=== PATIENT | male | born 1975 | race Caucasian/White ===

== ENCOUNTER 2024-10-24 12:04 | Day surgery (SDC) | payer BC ==
[2024-10-22 09:16] VITALS: BMI 35.2
[2024-10-24] MEDS: IV FLUID CONTINUATION 1,000 ML IV ONE ×2 (13:38→14:37)
[2024-10-24] MEDS: LACTATED RINGERS 1,000 ML BAG IV STA (13:52)
[2024-10-24] MEDS ORDERED: PROPOFOL 10 MG/ML 20 ML VIAL IV ONE (14:38)
--- NOTE | 2024-10-24 14:55 | P.PCN ---
Date of Procedure: 10/24/24 Procedure(s) Performed: BRIEF HISTORY: Patient is a 49-year-old pleasant white male scheduled for an elective colonoscopy as a part of screening for colon cancer. His dad was diagnosed with appendiceal cancer in his paternal uncle with colon cancer. PROCEDURE PERFORMED: Colonoscopy. PREOPERATIVE DIAGNOSIS: Screening for colon cancer and family Struve colon cancer]. IV sedation per Anesthesia. PROCEDURE: After informed consent was obtained, the patient, was brought into the endoscopy unit. IV sedation was administered by Anesthesia under continuous monitoring. Digital rectal examination was normal. Initially the Olympus CF-160 flexible video colonoscope was then inserted in the rectum, gradually advanced into the cecum without any difficulty. Careful examination was performed as the scope was gradually being withdrawn. Ileocecal valve and the appendiceal orifice were visualized and appeared normal. Prep was excellent. Mucosa of the cecum, ascending colon, transverse colon, descending colon, sigmoid colon, and rectum appeared normal. Retroflexion was performed in the rectum and no lesions were seen. The patient tolerated the procedure well. IMPRESSION: Normal-appearing colon from rectum to cecum with no evidence of colorectal neoplasia. RECOMMENDATIONS: Findings of this examination were discussed with the patient as well as his family.. He was advised to have repeat screening colonoscopy in 5 years because of the family history of colon cancer
[2024-10-24 15:14] VITALS: RESP 14; TEMP 98
[2024-10-24 15:32] VITALS: BP 135/79; PULSE 74
== END 2024-10-24 15:33 | disposition home or self-care (01) ==
LOC: ORWHC2ENDO 12:04
PROVIDERS: ATTEND Internal Medicine Gastroenterology
DX: Z12.11 Encounter for screening for malignant neoplasm of colon (principal); I10 Essential (primary) hypertension; E78.5 Hyperlipidemia, unspecified; K21.9 Gastro-esophageal reflux disease without esophagitis; Z79.899 Other long term (current) drug therapy; Z80.0 Family history of malignant neoplasm of digestive organs
CPT/HCPCS: 45378; J2704

== ENCOUNTER → 2025-01-01 | Outpatient (CLI) | payer BC ==
--- NOTE | 2025-01-01 12:13 | CA ---
Transthoracic Echo Report Name: Gaurav Izquierdo Age: 49 Gender: M : 1975 Exam Date: 01/01/2025 08:29 Exam Location: [place] Echo Ht (in): 69 Wt (lb): 240 Ordering Physician: Yusef Glez DO Attending/Referring Phys: Christianne Ramon [facility] Electric Meter Technician Brooke Carlson RDCS Procedure CPT: Indications: R00.1 bradycardia Cardiac Hx: Technical Quality: Good Contrast 1: Total Dose (mL): Contrast 2: Total Dose (mL): MEASUREMENTS (Male / Female) Normal Values 2D ECHO LV Diastolic Diameter PLAX 5.0 cm 4.2 - 5.9 / 3.9 - 5.3 cm LV Systolic Diameter PLAX 3.6 cm IVS Diastolic Thickness 1.3 cm 0.6 - 1.0 / 0.6 - 0.9 cm LVPW Diastolic Thickness 1.3 cm 0.6 - 1.0 / 0.6 - 0.9 cm LV Relative Wall Thickness 0.5 RV Internal Dim ED PLAX 3.5 cm LA Systolic Diameter LX 3.9 cm 3.0 - 4.0 / 2.7 - 3.8 cm LV Diastolic Volume MOD BP 138.7 cm??? 67 - 155 / 56 - 104 cm??? LV Systolic Volume MOD BP 55.9 cm??? 22 - 58 / 19 - 49 cm??? LV Ejection Fraction MOD BP 59.7 % >= 55 % LV Cardiac Index MOD BP 1906.5 cm???/min???m??? LV Diastolic Volume MOD 4C 132.1 cm??? LV Systolic Volume MOD 4C 64.2 cm??? LV Ejection Fraction MOD 4C 51.4 % LV Cardiac Index MOD 4C 1565.8 cm???/min???m??? LV Diastolic Length 4C 8.9 cm LV Systolic Length 4C 7.3 cm LV Diastolic Volume MOD 2C 141.1 cm??? LV Systolic Volume MOD 2C 57.0 cm??? LV Ejection Fraction MOD 2C 59.6 % LV Cardiac Index MOD 2C 1937.5 cm???/min???m??? LV Diastolic Length 2C 8.8 cm LV Systolic Length 2C 7.1 cm M-MODE Aortic Root Diameter MM 3.7 cm AV Cusp Separation MM 2.5 cm DOPPLER AV Peak Velocity 137.8 cm/s AV Peak Gradient 7.6 mmHg Mitral E Point Velocity 87.2 cm/s Mitral A Point Velocity 49.2 cm/s Mitral E to A Ratio 1.8 MV Deceleration Time 213.7 ms MV E' Velocity 11.5 cm/s Mitral E to MV E' Ratio 7.6 TR Peak Velocity 192.2 cm/s TR Peak Gradient 14.8 mmHg Right Ventricular Systolic Press 24.8 mmHg FINDINGS Left Ventricle Left ventricular ejection fraction is estimated at 55-60 %.Normal left ventricular systolic function with no obvious regional wall motion abnormalities. Mildly increased left ventricular wall thickness. Right Ventricle Normal right ventricular size. Right ventricular systolic pressure within normal limits. Right Atrium Normal right atrial size. No right atrial thrombus or mass seen. Left Atrium Normal left atrial size. No left atrial thrombus or mass present. Mitral Valve Structurally normal mitral valve. No evidence for mitral valve prolapse. No mitral stenosis. Mild mitral regurgitation. Aortic Valve Trileaflet aortic valve. No aortic valve stenosis or regurgitation. Tricuspid Valve Structurally normal tricuspid valve. Mild tricuspid regurgitation. Pulmonic Valve Structurally normal pulmonic valve. Trace pulmonic regurgitation. Pericardium No pericardial or pleural effusion. Aorta Normal size aortic root and proximal ascending aorta. CONCLUSIONS Normal left ventricular size and systolic function Mild mitral and tricuspid regurgitation Previewed by: Dr. Pita Shrestha MD (Electronically Signed) Final Date: 01 January 2025 12:12
--- NOTE | 2025-01-01 12:28 | CA ---
Exercise Stress Test Report Name: Gaurav Izquierdo Exam Date: 01/01/2025 09:06 Exam Location: [place] Stress Ht (in): 69 Wt (lb): 240 BSA: 2.23 Ordering Phys: Yusef Glez DO Referring Phys: Christianne Ramon Technologist: rosa moore Age: 49 Gender: M : 1975 Procedure CPT: Indications: R00.1 bradycardia ICD-10 Codes: Patient History: Medications: LISINOPRIL,,,, FENOFIBRATE,,, Meds past 24 hrs: Pretest Chest Pain: STRESS TEST Ki Protocol Exercise Duration (min:sec): 10:[address] Depressions (mm): 0 Angina Score: 0 Jacob Score: 10.1 Resting HR (bpm): 70 Peak HR (bpm): 155 Resting BP (mmHg): 137 / 90 Peak BP (mmHg): 201 / 79 MPHR: 171 Target HR: 145 % MPHR: 91 METS: 12.1 Total Dose: Peak Dose: Atropine: Double Product: [id number] BP Response: Stress Termination: TARGET HR REACHED/MAX EXERTION Stress Symptoms: NO SYMPTOMS Stress Summary: The patient's target heart rate was achieved ECG ANALYSIS Resting ECG: Sinus rhythm. Normal conduction. No arrhythmias. Normal repolarization. Stress ECG: No ECG evidence of ischemia with exercise. CONCLUSIONS Patient falls into low-risk group (DTS >= +5). This associates the patient with an annual CV mortality <= 0.5%. Exercise capacity very good at >[address] segment response to stress. Normal electrocardiographic stress test with good exercise tolerance and no evidence of stress-induced ischemia Dr. Pita Shrestha MD (Electronically Signed) Final Date: 01 January 2025 12:27
== END | disposition home or self-care (01) ==
LOC: RADECHMAIN 08:22
PROVIDERS: ATTEND Family Medicine
DX: I08.1 Rheumatic disorders of both mitral and tricuspid valves (principal); R00.1 Bradycardia, unspecified
CPT/HCPCS: 93017; 93306